=== PATIENT | female | born 1965 | race African-American/Black ===

== ENCOUNTER 2017-05-19 10:30 | Emergency (ER) | payer OTHER ==
[~2017-05-19] VITALS: Ht 157.5 cm; Wt 85.1 kg
[2017-05-19 12:05] VITALS: BP 168/80
== END 2017-05-19 12:08 | disposition home or self-care (01) ==
LOC: EME 10:30
DX: G43.909 Migraine, unspecified, not intractable, without status migrainosus (principal)
CPT/HCPCS: 99281; 99283; J1885; J2765

== ENCOUNTER 2017-12-24 00:06 | Emergency (ER) | payer OTHER ==
[~2017-12-24] VITALS: Ht 157.5 cm; Wt 84.2 kg
[2017-12-24 01:34] LABS: BASOPHIL (%) 0.3 % (0-1); EOSINOPHIL (%) 2.9 % (0-5); EOSINOPHIL COUNT 0.2 K/uL (0-0.3); HEMATOCRIT 35.7 % (36.0-46.0); HEMOGLOBIN 12.2 G/DL (11.9-15.5); IMMATURE GRANULOCYTE (%) 0.3 % (0.0-0.7); LYMPHOCYTE (%) 29.2 % (15-42); LYMPHOCYTE COUNT 1.9 K/uL (1.0-2.8); MCH 29.3 PG (29.0-34.0); MCHC 34.2 G/DL (30.0-36.0); MCV 85.6 FL (83-99); MONOCYTE (%) 8.8 % (3-12); MONOCYTE COUNT 0.6 K/uL (0-0.8); NEUTROPHIL (%) 58.5 % (45-76); NEUTROPHIL COUNT 3.9 K/uL (1.8-6.4); PLATELET COUNT 341 K/uL (156-360); RBC DIS.WIDTH-CV 13.9 % (11.8-14.6); RBC DIS.WIDTH-SD 43.1 % (39-53); RED BLOOD COUNT 4.17 M/uL (3.80-5.20); WHITE BLOOD COUNT 6.6 K/uL (4.1-10.2)
[2017-12-24 01:53] LABS: CHLORIDE 104 mEq/L (99-109); POTASSIUM 3.3 mEq/L (3.7-5.4); SODIUM 140 mEq/L (136-147)
[2017-12-24 01:55] LABS: GLUCOSE 137 mg/dL (70-99); TOTAL PROTEIN 7.7 g/dL (6.4-8.3)
[2017-12-24 01:57] LABS: TOTAL BILIRUBIN 0.7 mg/dL (0.0-1.0)
[2017-12-24 01:59] LABS: ALKALINE PHOSPHATASE 64 IU/L (3-129); CREATININE 0.8 mg/dL (0.6-1.3); GFR ESTIMATE (CALCULATED) > 59 mL/min/
[2017-12-24 02:00] LABS: TROP-I INTERPRETATION NEGATIVE; TROPONIN-I < 0.01 ng/mL (0.0-0.30); UREA NITROGEN (BUN) 6 mg/dL (9-23)
[2017-12-24 02:01] LABS: AST (GOT) 20 IU/L (2-34)
[2017-12-24 02:02] LABS: ALT (GPT) 14 IU/L (3-49); LIPASE 19 U/L (1.0-51.0)
[2017-12-24 02:40] LABS: APPEARANCE SL.HAZY ((CLEAR)); BILIRUBIN NEGATIVE; BLOOD SMALL; COLOR YELLOW ((YELLOW)); GLUCOSE (STRIP) NEGATIVE; KETONES NEGATIVE; LEUKOCYTES SMALL; NITRITE NEGATIVE; PROTEIN (STRIP) NEGATIVE; SPECIFIC GRAVITY 1.009 (1.000-1.030); UROBILINOGEN 0.2 MG/DL (0.2-1.0)
[2017-12-24 02:54] LABS: BACTERIA RARE /HPF; EPITHELIAL CELLS 1+ /HPF; MUCUS TRACE /LPF; RED BLOOD CELLS 0-5 /HPF (0-5); UCUL ADDED? NO; WHITE BLOOD CELLS 0-5 /HPF (0-5)
[2017-12-24] MEDS ORDERED: KEFLEX500 MG PO (05:48)
[2017-12-24 06:10] VITALS: BP 159/91
== END 2017-12-24 06:21 | disposition home or self-care (01) ==
LOC: EME 00:06
PROVIDERS: Emergency Medicine
DX: R10.9 Unspecified abdominal pain (principal); R07.9 Chest pain, unspecified; M79.602 Pain in left arm; R35.0 Frequency of micturition; Z90.49 Acquired absence of other specified parts of digestive tract
CPT/HCPCS: 71046; 74176; 80053; 81003; 83690; 84484; 85025; 85379; 87086; 93005; 99281; 99283; J1885

== ENCOUNTER 2018-01-27 22:20 | Emergency (ER) | payer OTHER ==
[~2018-01-27] VITALS: Ht 157.5 cm; Wt 85.1 kg
[~2018-01-27 22:20] MED LIST: KEFLEX500 MG PO
[2018-01-27 22:56] LABS: HEMATOCRIT 33.6 % (36.0-46.0); HEMOGLOBIN 11.6 G/DL (11.9-15.5); MCH 29.2 PG (29.0-34.0); MCHC 34.5 G/DL (30.0-36.0); MCV 84.6 FL (83-99); PLATELET COUNT 334 K/uL (156-360); RBC DIS.WIDTH-CV 14.6 % (11.8-14.6); RBC DIS.WIDTH-SD 45.1 % (39-53); RED BLOOD COUNT 3.97 M/uL (3.80-5.20); WHITE BLOOD COUNT 8.6 K/uL (4.1-10.2)
[2018-01-27 23:11] LABS: CHLORIDE 107 mEq/L (99-109); POTASSIUM 3.4 mEq/L (3.7-5.4); SODIUM 144 mEq/L (136-147)
[2018-01-27 23:12] LABS: GLUCOSE 102 mg/dL (70-99)
[2018-01-27 23:16] LABS: CREATININE 0.7 mg/dL (0.6-1.3); GFR ESTIMATE (CALCULATED) > 59 mL/min/; UREA NITROGEN (BUN) 5 mg/dL (9-23)
[2018-01-27 23:18] LABS: APPEARANCE SL.HAZY ((CLEAR)); BILIRUBIN NEGATIVE; BLOOD NEGATIVE; COLOR YELLOW ((YELLOW)); GLUCOSE (STRIP) NEGATIVE; KETONES NEGATIVE; LEUKOCYTES MODERATE; NITRITE NEGATIVE; PROTEIN (STRIP) NEGATIVE; SPECIFIC GRAVITY 1.011 (1.000-1.030)
[2018-01-27 23:22] LABS: BACTERIA NONE SEEN /HPF; EPITHELIAL CELLS 2+ /HPF; MUCUS TRACE /LPF; RED BLOOD CELLS 0-5 /HPF (0-5); UCUL ADDED? NO; WHITE BLOOD CELLS 0-5 /HPF (0-5)
[2018-01-27 23:54] LABS: ALBUMIN 3.9 g/dL (3.2-4.8)
[2018-01-27 23:56] LABS: TOTAL PROTEIN 7.3 g/dL (6.4-8.3)
[2018-01-27 23:58] LABS: TOTAL BILIRUBIN 0.8 mg/dL (0.0-1.0)
[2018-01-27 23:59] LABS: ALKALINE PHOSPHATASE 61 IU/L (3-129)
[2018-01-28 00:02] LABS: ALT (GPT) 10 IU/L (3-49); AST (GOT) 15 IU/L (2-34); DIRECT BILIRUBIN 0.3 mg/dL (0.0-0.3)
[2018-01-28 00:03] LABS: LIPASE 14 U/L (1.0-51.0)
[2018-01-28 00:08] LABS: QUANTITATIVE HCG < 4.0 MIU/ML
[2018-01-28] MEDS ORDERED: NORCO 5/3251 TABLET PO (00:35)
[2018-01-28] MEDS ORDERED: BACTRIM,SEPT1 TABLET PO (00:35)
[2018-01-28 01:28] VITALS: BP 144/78
== END 2018-01-28 00:24 | disposition home or self-care (01) ==
LOC: EME 22:20
DX: N30.00 Acute cystitis without hematuria (principal)
CPT/HCPCS: 80048; 80076; 81003; 83690; 84702; 85027; 99281; 99284

== ENCOUNTER 2018-02-15 21:25 | Emergency (ER) | payer OTHER ==
[~2018-02-15] VITALS: Ht 157.5 cm; Wt 82.2 kg
[~2018-02-15 21:25] MED LIST changes: +BACTRIM,SEPT1 TABLET PO; +NORCO 5/3251 TABLET PO
[2018-02-15 22:29] LABS: HEMATOCRIT 32.4 % (36.0-46.0); HEMOGLOBIN 11.4 G/DL (11.9-15.5); MCH 29.7 PG (29.0-34.0); MCHC 35.2 G/DL (30.0-36.0); MCV 84.4 FL (83-99); RBC DIS.WIDTH-CV 14.1 % (11.8-14.6); RBC DIS.WIDTH-SD 43.5 % (39-53); RED BLOOD COUNT 3.84 M/uL (3.80-5.20); WHITE BLOOD COUNT 6.7 K/uL (4.1-10.2)
[2018-02-15 22:43] LABS: ALBUMIN 3.8 g/dL (3.2-4.8); CHLORIDE 107 mEq/L (99-109); POTASSIUM 3.5 mEq/L (3.7-5.4)
[2018-02-15 22:44] LABS: SODIUM 142 mEq/L (136-147)
[2018-02-15 22:46] LABS: GLUCOSE 115 mg/dL (70-99)
[2018-02-15 22:48] LABS: TOTAL BILIRUBIN 0.7 mg/dL (0.0-1.0)
[2018-02-15 22:49] LABS: ALKALINE PHOSPHATASE 57 IU/L (3-129); CREATININE 0.7 mg/dL (0.6-1.3); GFR ESTIMATE (CALCULATED) > 59 mL/min/
[2018-02-15 22:51] LABS: AST (GOT) 15 IU/L (2-34); UREA NITROGEN (BUN) 5 mg/dL (9-23)
[2018-02-15 22:52] LABS: ALT (GPT) 10 IU/L (3-49)
[2018-02-15 22:53] LABS: LIPASE 14 U/L (1.0-51.0)
[2018-02-15 23:01] LABS: APPEARANCE CLEAR ((CLEAR)); BILIRUBIN NEGATIVE; BLOOD NEGATIVE; COLOR STRAW ((YELLOW)); GLUCOSE (STRIP) NEGATIVE; KETONES NEGATIVE; LEUKOCYTES NEGATIVE; NITRITE NEGATIVE; PROTEIN (STRIP) NEGATIVE; SPECIFIC GRAVITY 1.004 (1.000-1.030); UCUL ADDED? NO; UROBILINOGEN 0.2 MG/DL (0.2-1.0)
[2018-02-15 23:05] LABS: QUANTITATIVE HCG < 4.0 MIU/ML
[2018-02-15 23:13] LABS: PLAT.SUFFICIENCY ADEQUATE; PLATELET COUNT 333 K/uL (156-360)
[2018-02-16 00:55] VITALS: BP 195/88
== END 2018-02-16 00:56 | disposition home or self-care (01) ==
LOC: EME 21:25
PROVIDERS: Physician Assistant
DX: R10.9 Unspecified abdominal pain (principal); R30.0 Dysuria; R11.0 Nausea; R35.0 Frequency of micturition; K57.30 Diverticulosis of large intestine without perforation or abscess without bleeding; Z90.49 Acquired absence of other specified parts of digestive tract
CPT/HCPCS: 74176; 80053; 81003; 83690; 84702; 85027; 99281; 99284; J1885

== ENCOUNTER 2018-04-09 19:45 | Emergency (ER) | payer OTHER ==
[~2018-04-09] VITALS: Ht 157.5 cm; Wt 84.3 kg
[2018-04-09 20:22] LABS: HEMATOCRIT 33.6 % (36.0-46.0); HEMOGLOBIN 11.8 G/DL (11.9-15.5); MCH 29.6 PG (29.0-34.0); MCHC 35.1 G/DL (30.0-36.0); MCV 84.2 FL (83-99); PLATELET COUNT 311 K/uL (156-360); RBC DIS.WIDTH-CV 13.5 % (11.8-14.6); RBC DIS.WIDTH-SD 41.4 % (39-53); RED BLOOD COUNT 3.99 M/uL (3.80-5.20); WHITE BLOOD COUNT 7.1 K/uL (4.1-10.2)
[2018-04-09 20:30] LABS: CHLORIDE 106 mEq/L (99-109); POTASSIUM 3.7 mEq/L (3.7-5.4); SODIUM 143 mEq/L (136-147)
[2018-04-09 20:32] LABS: GLUCOSE 117 mg/dL (70-99)
[2018-04-09 20:36] LABS: CREATININE 0.7 mg/dL (0.6-1.3); GFR ESTIMATE (CALCULATED) > 59 mL/min/
[2018-04-09 20:37] LABS: UREA NITROGEN (BUN) 6 mg/dL (9-23)
[2018-04-09 20:44] LABS: QUANTITATIVE HCG < 4.0 MIU/ML
[2018-04-09 21:25] LABS: APPEARANCE CLEAR ((CLEAR)); BILIRUBIN NEGATIVE; BLOOD NEGATIVE; COLOR YELLOW ((YELLOW)); GLUCOSE (STRIP) NEGATIVE; KETONES NEGATIVE; LEUKOCYTES NEGATIVE; NITRITE NEGATIVE; PROTEIN (STRIP) NEGATIVE; SPECIFIC GRAVITY 1.011 (1.000-1.030); UCUL ADDED? NO
[2018-04-09 22:14] VITALS: BP 182/87
== END 2018-04-09 22:15 | disposition home or self-care (01) ==
LOC: RME 19:45 → EME 19:45 → RME 22:15
PROVIDERS: Physician Assistant Medical
DX: R10.9 Unspecified abdominal pain (principal); D86.9 Sarcoidosis, unspecified; G35 Multiple sclerosis; Z90.49 Acquired absence of other specified parts of digestive tract
CPT/HCPCS: 74176; 80048; 81003; 84702; 85027; 99281; 99284